=== PATIENT | female | born 1960 | race Caucasian/White ===

== ENCOUNTER 2021-03-26 15:23 | Emergency (ER) | payer OTHER | END 2021-03-26 16:48 | disposition home or self-care (01) | LOC: ER1 15:23 | DX: S16.1XXA Strain of muscle, fascia and tendon at neck level, initial encounter (principal); I25.10 Atherosclerotic heart disease of native coronary artery without angina pectoris; I10 Essential (primary) hypertension; K21.9 Gastro-esophageal reflux disease without esophagitis; V43.62XA Car passenger injured in collision with other type car in traffic accident, initial encounter; Y92.410 Unspecified street and highway as the place of occurrence of the external cause | CPT/HCPCS: 72125; 72128; 99283 ==